=== PATIENT | female | born 1980 | race Caucasian/White ===

== ENCOUNTER 2017-01-20 18:46 | Emergency (ER) | payer MEDICAID ==
[~2017-01-20] VITALS: Ht 162.6 cm; Wt 89.0 kg
[2017-01-20 18:49] VITALS: Ht 162.6 cm; Wt 89.0 kg
[2017-01-20] MEDS ORDERED: LIDOCAINE/MYLANTA 40 ML BTL PO STA (19:15)
[2017-01-20] MEDS ORDERED: ONDANSETRON (ODT) 4 MG TAB ODT STA (19:15)
[2017-01-20] MEDS ORDERED: FAMOTIDINE 20 MG TAB PO STA (19:15)
[2017-01-20 19:52] LABS: BASOPHILS % 0.4 % (0.0-2.0); EOSINOPHILS # 0.3 10^3/ul (0.0-0.5); EOSINOPHILS % 2.8 % (0.0-7.0); HEMATOCRIT 35.8 % (37.0-47.0); HEMOGLOBIN 12.3 g/dl (12.0-16.0); LYMPHOCYTES # 2.7 10^3/ul (0.8-2.9); LYMPHOCYTES % 29.9 % (15.0-51.0); MEAN CORPUSCULAR HEMOGLOBIN 26.2 pg (29.0-33.0); MEAN CORPUSCULAR HGB CONC 34.4 g/dl (32.0-37.0); MEAN CORPUSCULAR VOLUME 76.3 fl (82.0-101.0); MEAN PLATELET VOLUME 10.4 fl (7.4-10.4); MONOCYTE # 0.6 10^3/ul (0.3-0.9); MONOCYTES % 6.1 % (0.0-11.0); NEUTROPHILS % 60.6 % (39.0-77.0); PLATELET COUNT 180 10^3/UL (140-415); RED BLOOD COUNT 4.69 10^6/ul (4.20-5.40); RED CELL DISTRIBUTION WIDTH 12.8 % (11.5-14.5)
[2017-01-20 20:12] LABS: ALBUMIN/GLOBULIN RATIO 1.29; BILIRUBIN,INDIRECT 0.2 mg/dl (0-1.1); BILIRUBIN,TOTAL 0.2 mg/dl (0.2-1.3); CALCIUM 8.8 mg/dl (8.4-10.2); CREATININE 0.69 mg/dl (0.44-1.00); POTASSIUM 3.7 mmol/L (3.5-5.1); TOTAL PROTEIN 7.1 g/dl (6.1-8.1)
[2017-01-20 20:17] LABS: ADD UMIC YES; UR ASCORBIC ACID NEGATIVE (NEGATIVE); UR BILIRUBIN (Dip) NEGATIVE (NEGATIVE); UR BLOOD (Dip) 1+ mg/dL (NEGATIVE); UR CLARITY CLEAR (CLEAR); UR COLOR YELLOW (YELLOW); UR GLUCOSE (Dip) NEGATIVE (NEGATIVE); UR KETONES (Dip) NEGATIVE (NEGATIVE); UR LEUKOCYTE ESTERASE (Dip) TRACE Leu/ul (NEGATIVE); UR MUCUS FEW /HPF (NONE SEEN); UR NITRITE (Dip) NEGATIVE (NEGATIVE); UR RBC 1 /HPF (0-5); UR SPECIFIC GRAVITY (Dip) 1.029 (1.003-1.030); UR SQUAMOUS EPITHELIAL CELL FEW /HPF (FEW); UR TOTAL PROTEIN (Dip) NEGATIVE (NEGATIVE); UR UROBILINOGEN (Dip) NEGATIVE (NEGATIVE)
--- NOTE | 2017-01-20 20:28 | ERD ---
ER Documentation Chief Complaint Date/Time DATE: 01/20/17 TIME: 20:26 Chief Complaint LLQ abd pain x 3 days HPI Patient is a 36-year-old female with no past medical history who presents to the ED with left-sided abdominal pain on and off for the last 3 days. She states that the pain came on suddenly. She states that she does not have a decrease in appetite and is tolerating food and fluids and has normal urinary output and bowel movement. She denies chest pain or cough or shortness of breath. She denies nausea, vomiting or diarrhea. She denies headache or dizziness. Denies recent travel. Denies sick contacts. Denies recent URIs. Denies seizures or rashes. She has not taken any medication for her symptoms. She has no other complaints. ROS All systems reviewed and are negative except as per history of present illness. Medications Home Meds Active Scripts Acetaminophen* (Tylophen*) 500 Mg Capsule, 1 CAP PO Q6H Y for PAIN AND OR ELEVATED TEMP, #20 CAP Prov:SCOTT LOPEZ PA-C 01/20/17 Nitrofurantoin Monohyd Macrocr* (Macrobid*) 100 Mg Capsr, 100 MG PO BID for 7 Days, CAP Prov:SCOTT LOPEZ PA-C 01/20/17 Allergies Allergies: Coded Allergies: No Known Allergy (Verified , 01/20/17) PMhx/Soc History of Surgery: No Anesthesia Reaction: No Hx Neurological Disorder: No Hx Respiratory Disorders: No Hx Cardiac Disorders: No Hx Psychiatric Problems: No Hx Miscellaneous Medical Probl: No (NO HX) Hx Alcohol Use: No Hx Substance Use: No Hx Tobacco Use: No Smoking Status: Never smoker FmHx Family History: No coronary disease, No diabetes, No other Physical Exam Vitals Vital Signs Date Time Temp Pulse Resp B/P Pulse Ox O2 Delivery O2 Flow Rate FiO2 01/20/17 18:49 98.3 85 20 146/82 100 Physical Exam GENERAL: Well-developed, well-nourished female. Appears in no acute distress. HEAD: Normocephalic, atraumatic. EYES: Pupils are equally reactive bilaterally. EOMs grossly intact. No conjunctival erythema. ENT: Moist mucous membranes. No uvula deviation. No kissing tonsils. No exudates. NECK: Supple. No lymphadenopathy or thyromegaly. No meningismus. negative kernig. negative brudinski. LUNG: Clear to auscultation bilaterally. No rhonchi, wheezing, rales or coarse breath sounds. HEART: Regular rate and rhythm. No murmurs, rubs or gallops. ABDOMEN: No scars, ecchymosis or rashes noted. Soft and nondistended, mild tenderness in the left mid and left lower quadrant positive bowel sounds in all four quadrants. No rebound tenderness, no guarding. (-) McBurneys point tenderness. No CVA tenderness. BACK: No midline tenderness. Extremities: Equal pulses bilaterally. No peripheral clubbing, cyanosis or edema. No unilateral leg swelling. NEUROLOGIC: Alert and oriented. Moving all four extremities. 5/5 strength in all extremities. Normal speech. Steady gait. SKIN: Normal color. Warm and dry. No rashes or lesions. Capillary refill < 2 seconds Result Diagram: 01/20/17192401/20/171924 Results 24 hrs Laboratory Tests Test 01/20/17 19:25 01/20/17 19:50 White Blood Count 9.010^3/ul Red Blood Count 4.6910^6/ul Hemoglobin 12.3g/dl Hematocrit 35.8% Mean Corpuscular Volume 76.3fl Mean Corpuscular Hemoglobin 26.2pg Mean Corpuscular Hemoglobin Concent 34.4g/dl Red Cell Distribution Width 12.8% Platelet Count 09584^3/UL Mean Platelet Volume 10.4fl Neutrophils % 60.6% Lymphocytes % 29.9% Monocytes % 6.1% Eosinophils % 2.8% Basophils % 0.4% Nucleated Red Blood Cells % 0.0/100WBC Neutrophils # (Manual) 5.410^3/ul Lymphocytes # 2.710^3/ul Monocytes # 0.610^3/ul Eosinophils # 0.310^3/ul Basophils # 0.010^3/ul Nucleated Red Blood Cells # 0.010^3/ul Sodium Level 139mmol/L Potassium Level 3.7mmol/L Chloride Level 104mmol/L Carbon Dioxide Level 28mmol/L Anion Gap 11 Blood Urea Nitrogen 10mg/dl Creatinine 0.69mg/dl Glucose Level 100mg/dl Calcium Level 8.8mg/dl Total Bilirubin 0.2mg/dl Direct Bilirubin 0.00mg/dl Indirect Bilirubin 0.2mg/dl Aspartate Amino Transf (AST/SGOT) 15IU/L Alanine Aminotransferase (ALT/SGPT) 25IU/L Alkaline Phosphatase 89IU/L Total Protein 7.1g/dl Albumin 4.0g/dl Globulin 3.10g/dl Albumin/Globulin Ratio 1.29 Lipase 122U/L Urine Color YELLOW Urine Clarity CLEAR Urine pH 5.0 Urine Specific [place] 1.029 Urine Ketones NEGATIVEmg/dL Urine Nitrite NEGATIVEmg/dL Urine Bilirubin NEGATIVEmg/dL Urine Urobilinogen NEGATIVEmg/dL Urine Leukocyte Esterase TRACELeu/ul Urine Microscopic RBC 1/HPF Urine Microscopic WBC 1/HPF Urine Squamous Epithelial Cells FEW/HPF Urine Mucus FEW/HPF Urine Hemoglobin 1+mg/dL Urine Glucose NEGATIVEmg/dL Urine Total Protein NEGATIVEmg/dl Current Medications Medications (Trade) Dose Ordered Sig/Pedro Luis Route PRN Reason Start Time Stop Time Status Last Admin Dose Admin Famotidine (Pepcid) 20 mg ONCE STAT PO 01/20/17 19:15 01/20/17 19:17 DC 01/20/17 19:35 Miscellaneous Medication (Gi Cocktail (2)) 40 ml ONCE STAT PO 01/20/17 19:15 01/20/17 19:17 DC 01/20/17 19:35 Ondansetron HCl (Zofran Odt) 4 mg ONCE STAT ODT 01/20/17 19:15 01/20/17 19:17 DC 01/20/17 19:35 Procedures/MDM ER COURSE: I kept the patient and/or family informed of laboratory and diagnostic imaging results throughout the emergency room course. MEDICATIONS: Zofran, GI cocktail, Pepcid. Tolerated well with no adverse reaction. LAB INTERPRETATION: CBC showed no evidence of systemic infection or severe anemia. CMP showed no evidence of electrolyte abnormalities, severe acidosis, alkalosis, renal failure , or liver disease. Lipase showed no evidence of acute pancreatitis. UA showed trace leukocytes, no nitrites or hematuria. Urine test was negative. MEDICAL DECISION MAKING: This is a 36-year-old female who presents with sided abdominal pain 3 days. Vital signs were reviewed. Patient is afebrile. Patient is not hypoxic. Patient is not toxic or ill-appearing. Risk versus benefits of a CT scan were discussed with patient at this point the risks outweigh the benefits. Patient only has mild tenderness on examination and does not have nausea, vomiting, diarrhea or fevers. Patient has abdominal pain of unknown etiology. After examining patient after administration of medication, patient had improvement in symptoms and was ready to be discharged home. Low suspicion for ACS, AAA, perforated ulcer, bowel obstruction, cholecystitis, choledocholithiasis, cholangitis, pancreatitis, hepatic abscess, appendicitis, diverticulitis. Patient's urinalysis shows trace leukocytes, patient likely has early cystitis and I will be treating the patient outpatient Isra for this DISCHARGE: At this time, patient is stable for discharge and outpatient management with no new complaints during the ER course. Patient was sent home with Macrobid and Tylenol patient will be discharged home with instructions to recheck for new or worsening symptoms such as fever, nausea, weakness, LOC and to follow up with primary care in the next 1-2 days. Patient was advised to return to the ER for any new or worsening symptoms. Plan was discussed and patient and/or family understands and agrees. Home instructions were given. Departure Diagnosis: Primary Impression: Cystitis Additional Impression: Abdominal pain Abdominal location: unspecified location Qualified Code: R10.9 - Abdominal pain, unspecified location Condition: Stable SCOTT LOPEZ PA-C Jan 20, 2017 20:28
[2017-01-20] MEDS ORDERED: ACET500C5 PO (20:55)
[2017-01-20] MEDS ORDERED: NITR-58 PO (20:55)
[2017-01-20 21:05] VITALS: BP 133/77; PULSE 82; RESP 20; TEMP 98.6
== END 2017-01-20 21:07 | disposition home or self-care (01) ==
LOC: FTE 18:46
DX: N30.90 Cystitis, unspecified without hematuria (principal)
CPT/HCPCS: 36415; 80053; 81001; 83690; 85025; Z7502; Z7610; 99283

== ENCOUNTER 2018-11-30 10:41 | Emergency (ER) | payer MEDICAID, OTHER ==
[~2018-11-30] VITALS: Ht 167.6 cm; Wt 91.8 kg
[~2018-11-30 10:41] MED LIST: ACET500C5 PO; NITR-58 PO
[2018-11-30 10:50] VITALS: BP 165/95; PULSE 73; RESP 18; Ht 167.6 cm; Wt 91.8 kg
[2018-11-30] MEDS ORDERED: KETOROLAC 15 MG INJ IV STA (11:05)
[2018-11-30] MEDS ORDERED: SOD CHLORIDE 0.9% 1,000 ML IV STA (11:05)
[2018-11-30] MEDS ORDERED: FAMOTIDINE 20 MG INJ IV STA (11:05)
[2018-11-30] MEDS ORDERED: ONDANSETRON 4 MG INJ IV STA ×2 (11:05→11:55)
--- NOTE | 2018-11-30 11:23 | ERD ---
ER Documentation Chief Complaint Chief Complaint abdominal pain since last night, + nausea HPI 38-year-old female presents with epigastric and right upper quadrant pain that began last night with nausea. No vomiting. She has history of gallstones but states she has not had a attack in several years. No fevers. No urinary sympto ms. She took Motrin which did calm the pain down for a little bit but the pain came back. ROS All systems reviewed and are negative except as per history of present illness. Medications Home Meds Active Scripts Ondansetron (Ondansetron Odt) 4 Mg Tab.rapdis, 4 MG PO Q6H PRN for NAUSEA AND/OR VOMITING, #15 TAB Prov:DOUG RAVI PA-C 11/30/18 Hydrocodone/Acetaminophen (Colt 5-325 Tablet) 1 Each Tablet, 1 TAB PO Q6H PRN for PAIN, #15 TAB Prov:DOUG RAVI PA-C 11/30/18 Acetaminophen* (Tylophen*) 500 Mg Capsule, 1 CAP PO Q6H PRN for PAIN AND OR ELEVATED TEMP, #20 CAP Prov:SCOTT LOPEZ PA-C 01/20/17 Nitrofurantoin Monohyd Macrocr* (Macrobid*) 100 Mg Capsr, 100 MG PO BID for 7 Days, CAP Prov:SCOTT LOPEZ PA-C 01/20/17 Allergies Allergies: Coded Allergies: No Known Allergy (Verified , 01/20/17) PMhx/Soc Medical and Surgical Hx: pt denies Medical Hx, pt denies Surgical Hx History of Surgery: No Anesthesia Reaction: No Hx Neurological Disorder: No Hx Respiratory Disorders: No Hx Cardiac Disorders: No Hx Psychiatric Problems: No Hx Miscellaneous Medical Probl: No (NO HX) Hx Alcohol Use: No Hx Substance Use: No Hx Tobacco Use: No FmHx Family History: No diabetes Physical Exam Vitals Vital Signs Date Temp Pulse Resp B/P (MAP) Pulse Ox O2 O2 Flow FiO2 Time Delivery Rate 11/30/18 98.0 73 18 165/95 99 10:50 (118) Physical Exam INITIAL VITAL SIGNS: Reviewed by me GENERAL: Awake, alert and oriented x 4, well appearing, nontoxic, speaking in full sentences. No acute distress HEAD: Atraumatic NECK: Supple. No masses. Full range of motion. No meningismus. No midline tenderness. EYES: EOMI. PERRL. RESPIRATORY: Clear to auscultation bilaterally. Symmetric chest wall rise. No wheezing or rales. No accessory muscle use. CV: Regular rate and rhythm. No murmurs, rubs, or gallops. ABDOMEN: Soft, non-distended. Nontender. Positive [place]. Negative McBurneys point tenderness. No CVA tenderness bilaterally. No guarding. No rebound. Result Diagram: 11/30/18 1114 11/30/18 1114 Results 24 hrs Laboratory Tests Test 11/30/18 11:14 11/30/18 11:16 White Blood Count 12.5 10^3/ul Red Blood Count 5.29 10^6/ul Hemoglobin 14.3 g/dl Hematocrit 41.3 % Mean Corpuscular Volume 78.1 fl Mean Corpuscular Hemoglobin 27.0 pg Mean Corpuscular Hemoglobin Concent 34.6 g/dl Red Cell Distribution Width 12.4 % Platelet Count 222 10^3/UL Mean Platelet Volume 10.3 fl Immature Granulocytes % 0.200 % Neutrophils % 78.2 % Lymphocytes % 16.2 % Monocytes % 4.2 % Eosinophils % 0.8 % Basophils % 0.4 % Nucleated Red Blood Cells % 0.0 /100WBC Immature Granulocytes # 0.030 10^3/ul Neutrophils # 9.8 10^3/ul Lymphocytes # 2.0 10^3/ul Monocytes # 0.5 10^3/ul Eosinophils # 0.1 10^3/ul Basophils # 0.1 10^3/ul Nucleated Red Blood Cells # 0.0 10^3/ul Urine Color YELLOW Urine Clarity CLEAR Urine pH 5.0 Urine Specific [place] 1.018 Urine Ketones NEGATIVE mg/dL Urine Nitrite NEGATIVE mg/dL Urine Bilirubin NEGATIVE mg/dL Urine Urobilinogen NEGATIVE mg/dL Urine Leukocyte Esterase NEGATIVE Rosa M/ul Urine Microscopic RBC 2 /HPF Urine Microscopic WBC 0 /HPF Urine Squamous Epithelial Cells FEW /HPF Urine Hemoglobin 2+ mg/dL Urine Glucose NEGATIVE mg/dL Urine Total Protein NEGATIVE mg/dl Sodium Level 141 mmol/L Potassium Level 5.0 mmol/L Chloride Level 105 mmol/L Carbon Dioxide Level 25 mmol/L Anion Gap 11 Blood Urea Nitrogen 11 mg/dl Creatinine 0.54 mg/dl Est Glomerular Filtrat Rate mL/min > 60 mL/min Glucose Level 104 mg/dl Calcium Level 8.2 mg/dl Total Bilirubin 0.5 mg/dl Direct Bilirubin 0.00 mg/dl Indirect Bilirubin 0.5 mg/dl Aspartate Amino Transf (AST/SGOT) 44 IU/L Alanine Aminotransferase (ALT/SGPT) 13 IU/L Alkaline Phosphatase 73 IU/L Total Protein 8.4 g/dl Albumin 4.5 g/dl Globulin 3.90 g/dl Albumin/Globulin Ratio 1.15 Lipase 135 U/L POC Beta HCG, Qualitative NEGATIVE Current Medications Medications Dose Sig/Pedro Luis Start Time Status Last (Trade) Ordered Route PRN Stop Time Admin Dose Reason Admin Sodium 1,000 ml @ Q1H STAT 11/30/18 DC 11/30/18 Chloride 1,000 mls/hr IV 11:05 11:37 11/30/18 12:04 Ondansetron 4 mg ONCE STAT 11/30/18 DC 11/30/18 HCl (Zofran IV 11:05 11:38 Inj) 11/30/18 11:07 Famotidine 20 mg ONCE STAT 11/30/18 DC 11/30/18 (Pepcid Iv) IV 11:05 11:38 11/30/18 11:07 Ketorolac 15 mg ONCE STAT 11/30/18 DC 11/30/18 Tromethamine IV 11:05 11:37 (Toradol) 11/30/18 11:07 Morphine 4 mg ONCE STAT 11/30/18 DC 11/30/18 Sulfate IV 11:55 12:02 (morphine) 11/30/18 11:56 Ondansetron 4 mg ONCE STAT 11/30/18 DC 11/30/18 HCl (Zofran IV 11:55 12:00 Inj) 11/30/18 11:56 Procedures/MDM The differential diagnosis includes but is not limited to appendicitis, cholelithiasis, cholecystitis, pancreatitis, hepatitis, gastritis, peptic ulcer disease, bowel obstruction, diverticulitis, renal disease including stones, torsion, AAA, pyelonephritis, and others. Patient is here with right upper quadrant abdominal pain. Abdominal labs and ultrasound ordered. She does have a history of gallstones. Ultrasound confirms gallstones. She has biliary colic. Her bilirubin and LFTs are normal. Discharged with pain medication and Zofran. Patient counseled regarding my diagnostic impression and care plan. Prior to discharge all questions answered. Pt agrees with treatment plan and understands strict return precautions. Pt is instructed to follow up with primary care provider within 24-48 hours. Precautionary instructions provided including instructions to return to the ER if not improving or for any worsening or changing symptoms or concerns. Departure Diagnosis: Primary Impression: Biliary colic Condition: Stable DOUG RAVI PA-C Nov 30, 2018 11:23
[2018-11-30] MEDS: morphine 4 MG/ML VIAL IV STA ×2 (11:59→12:02)
[2018-11-30] MEDS ORDERED: HYDR-4011 PO (12:05)
[2018-11-30] MEDS ORDERED: ONDA4TAB14 PO (12:05)
== END 2018-11-30 12:35 | disposition home or self-care (01) ==
LOC: FTE 10:41
DX: K80.50 Calculus of bile duct without cholangitis or cholecystitis without obstruction (principal)
CPT/HCPCS: 76705; 80053; 81001; 81025; 83690; 85025; J1885; J2270; J2405; J7030; Z7610; 36415; 96374; 96375; 96376